=== PATIENT | female | born 1945 | race American Indian/Alaskan Native ===

== ENCOUNTER 2019-03-11 10:50 | Emergency (ER) | payer MEDICARE ==
[2019-03-11 11:08] VITALS: BP 192/90
--- NOTE | 2019-03-11 11:09 | Emergency Department Report ---
Blank Doc - Documentation Documentation: 74-year-old female that presents with abdominal pain and nausea. This initial assessment/diagnostic orders/clinical plan/treatment(s) is/are subject to change based on patient's health status, clinical progression and re- assessment by fellow clinical providers in the ED. Further treatment and workup at subsequent clinical providers discretion. Patient/guardians urged not to elope from the ED as their condition may be serious if not clinically assessed and managed. Initial orders include: 1- Patient sent to [facility] for further evaluation and treatment 2- labs 3- UA
[2019-03-11] MEDS ORDERED: FAMOTIDINE 20 MG/2 ML INJ IV ONE (14:10)
[2019-03-11] MEDS ORDERED: ONDANSETRON 4 MG/2 ML INJ IV ONE (14:10)
[2019-03-11] MEDS ORDERED: KETOROLAC 30 MG/1 ML INJ IV ONE (14:10)
[2019-03-11 14:21] LABS: Hematocrit 42.4 % (30.3-42.9); Mean Corpuscular HGB Conc 33 % (30-34); Mean Corpuscular Volume 84 fl (79-97); Platelet Count 225 K/mm3 (140-440); Red Blood Count 5.08 M/mm3 (3.65-5.03); Red Cell Distribution Width 12.8 % (13.2-15.2)
[2019-03-11 15:02] LABS: Albumin 4.4 g/dL (3.9-5); Calcium 9.6 mg/dL (8.4-10.2)
[2019-03-11 15:05] LABS: Bilirubin,Urine NEG (Negative); Blood,Urine NEG (Negative); Color,Urine Yellow (Yellow); Mucus,Urine FEW /HPF; Protein,Urine <15 mg/dL mg/dL (Negative); Urobilinogen,Urine < 2.0 mg/dL (<2.0)
[2019-03-11 15:59] LABS: Basophils % (Manual) 0 % (0.0-1.8); Total Cells Counted 100
[2019-03-11 16:04] LABS: Platelet Estimate Consistent w Auto; RBC Morphology Normal
--- NOTE | 2019-03-11 17:17 | Cat Scan Report ---
CT ABDOMEN AND PELVIS WITH CONTRAST INDICATION / CLINICAL INFORMATION: Abdominal pain. TECHNIQUE: Axial CT images were obtained through the abdomen and pelvis after 100 mL Omnipaque [address] scans at this location are performed using CT dose reduction for ALARA by means of automated exposure control. COMPARISON: None available. FINDINGS: LOWER CHEST: No significant abnormality. LIVER: No significant abnormality. BILIARY SYSTEM: No significant abnormality. PANCREAS: No significant abnormality. SPLEEN: No significant abnormality. ADRENALS: No significant abnormality. KIDNEYS and URETERS: No significant abnormality. 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 In the upper abdomen a t midline, there is abnormal swirling of mesenteric vessels, and much of the proximal small bowel nor guillermo located in the left upper quadrant is in the right lower quadrant. This includes the distal duo denum and proximal jejunum. Fourth portion of the duodenum does not cross midline. Tethered appearanc e of the mesentery is noted, and segment of the transverse colon is drawn posteriorly, this is in the region of a stapled anastomosis that may represent the jejunojejunostomy. See, for instance series 2 image 83. Swirling of vessels is evident on the axial scan on images 63-88, along with abnormal path of the duodenum and the proximal jejunum from midline back to the right. PERITONEUM: No free fluid. No free air. No fluid collection. LYMPH NODES: No adenopathy. VASCULAR STRUCTURES: No significant abnormality. URINARY BLADDER: No significant abnormality. REPRODUCTIVE ORGANS: Uterus is absent. No significant adnexal abnormality. ADDITIONAL FINDINGS: None. SKELETAL SYSTEM: No acute abnormality. There is a probable hemangioma in the L2 vertebral body just t o the right of midline. There are bilateral pars defects at L4 and a right-sided pars defect at L3. M oderately advanced degenerative disc disease in the lumbar spine, most significant at L5-S1. IMPRESSION: 1. Abnormal path of the proximal small bowel and swirling of central abdominal mesentery is suggesti ve of internal hernia in the setting of previous Neda-en-Y gastric bypass. No evidence of bowel obstr uction is present. 2. No other acute abnormality. Signer Name: Ck Shabazz MD Signed: 03/11/2019 5:13 PM Workstation Name: [id number]
--- NOTE | 2019-03-11 17:37 | Emergency Department Report ---
ED Abdominal Pain HPI - General Chief Complaint: Abdominal Pain Stated Complaint: ABD/BACK PAIN Time Seen by Provider: 03/11/19 11:08 Source: patient Mode of arrival: Ambulatory Limitations: No Limitations - History of Present Illness Initial Comments: Patient is a 74-year-old asthmatic female has a past history of hypertension and a gastric bypass in 2005 presenting with nausea and some mid abdominal discomfort. Patient states that she feels as though there is a gassy movement within her abdomen. States diocese of crampy pain. States that the pain is, mid abdomen. She's had some nausea but denies vomiting. Patient states that she's had one episode of some slightly loose stool before the most part her bowel habits have been relatively normal for her. She denies fevers chills cough cold congestion at this time. Severity scale (0 -10): 1 - Related Data Home Medications Medication Instructions Recorded Confirmed Last Taken Lisinopril/Hydrochlorothiazide 1 tab PO DAILY 05/15/14 05/15/14 Unknown Previous Rx's Medication Instructions Recorded Last Taken Type Ciprofloxacin HCl [Ciprofloxacin 500 mg PO Q12HR #14 tab 03/11/19 Unknown Rx TAB] Dicyclomine [Bentyl] 20 mg PO QID #10 tablet 03/11/19 Unknown Rx Famotidine [Pepcid] 40 mg PO QHS #10 tablet 03/11/19 Unknown Rx Fluconazole [Diflucan TAB] 150 mg PO ONCE #1 tablet 03/11/19 Unknown Rx Metoclopramide [Reglan] 10 mg PO TID PRN #12 tab 03/11/19 Unknown Rx Allergies Allergy/AdvReac Type Severity Reaction Status Date / Time codeine AdvReac Unknown Verified 03/11/19 11:10 ED Review of Systems ROS: Stated complaint: ABD/BACK PAIN Other details as noted in HPI Comment: All other systems reviewed and negative ED Past Medical Hx - Past Medical History Previous Medical History?: Yes Hx Hypertension: Yes - Surgical History Past Surgical History?: Yes Additional Surgical History: Gastric bypass 2005 - Social History Smoking Status: Never Smoker Substance Use Type: None - Medications Home Medications: Home Medications Medication Instructions Recorded Confirmed Last Taken Type Lisinopril/Hydrochlorothiazide 1 tab PO DAILY 05/15/14 05/15/14 Unknown History Ciprofloxacin HCl [Ciprofloxacin 500 mg PO Q12HR #14 tab 03/11/19 Unknown Rx TAB] Dicyclomine [Bentyl] 20 mg PO QID #10 tablet 03/11/19 Unknown Rx Famotidine [Pepcid] 40 mg PO QHS #10 tablet 03/11/19 Unknown Rx Fluconazole [Diflucan TAB] 150 mg PO ONCE #1 tablet 03/11/19 Unknown Rx Metoclopramide [Reglan] 10 mg PO TID PRN #12 tab 03/11/19 Unknown Rx ED Physical Exam - General Limitations: No Limitations General appearance: alert, in no apparent distress - Head Head exam: Present: atraumatic, normocephalic - Eye Eye exam: Present: normal appearance, PERRL, EOMI - ENT ENT exam: Present: mucous membranes moist - Neck Neck exam: Present: normal inspection - Respiratory Respiratory exam: Present: normal lung sounds bilaterally. Absent: respiratory distress, wheezes, rales, rhonchi - Cardiovascular Cardiovascular Exam: Present: regular rate, normal rhythm, normal heart sounds. Absent: systolic murmur, diastolic murmur, rubs, gallop - GI/Abdominal GI/Abdominal exam: Present: soft, tenderness (periumbilical tenderness on palpation), normal bowel sounds. Absent: distended, guarding, rebound, pulsatile mass - Extremities Exam Extremities exam: Present: normal inspection - Back Exam Back exam: Present: normal inspection - Neurological Exam Neurological exam: Present: alert, oriented X3 - Psychiatric Psychiatric exam: Present: normal affect, normal mood - Skin Skin exam: Present: warm, dry, intact, normal color. Absent: rash ED Course Vital Signs 03/11/19 03/11/19 03/11/19 11:06 14:41 15:11 Temperature 98.4 F Pulse Rate 53 L Respiratory 16 16 18 Rate Blood Pressure 192/90 O2 Sat by Pulse 97 Oximetry ED Medical Decision Making - Lab Data Result diagrams: 03/11/19 13:21 03/11/19 13:21 Lab Results 03/11/19 03/11/19 03/11/19 Range/Units 13:21 13:21 Unknown WBC 8.8 (4.5-11.0) K/mm3 RBC 5.08 H (3.65-5.03) M/mm3 Hgb 14.0 (10.1-14.3) gm/dl Hct 42.4 (30.3-42.9) % MCV 84 (79-97) fl MCH 28 (28-32) pg MCHC 33 (30-34) % RDW 12.8 L (13.2-15.2) % Plt Count 225 (140-440) K/mm3 [place] % (Auto) Fre[employer] Rate Specialist Add Manual Diff Complete Total Counted 100 Seg Neutrophils % Freight Rate Specialist Seg Neuts % (Manual) 72.0 H (40.0-70.0) % Band Neutrophils % 0 % Lymphocytes % (Manual) 21.0 (13.4-35.0) % Reactive Lymphs % (Man) 0 % Monocytes % (Manual) 6.0 (0.0-7.3) % Eosinophils % (Manual) 1.0 (0.0-4.3) % Basophils % (Manual) 0 (0.0-1.8) % Metamyelocytes % 0 % Myelocytes % 0 % Promyelocytes % 0 % Blast Cells % 0 % Nucleated RBC % Not Reportable Seg Neutrophils # Man 6.3 (1.8-7.7) K/mm3 Band Neutrophils # 0.0 K/mm3 Lymphocytes # (Manual) 1.8 (1.2-5.4) K/mm3 Abs React Lymphs (Man) 0.0 K/mm3 Monocytes # (Manual) 0.5 (0.0-0.8) K/mm3 Eosinophils # (Manual) 0.1 (0.0-0.4) K/mm3 Basophils # (Manual) 0.0 (0.0-0.1) K/mm3 Metamyelocytes # 0.0 K/mm3 Myelocytes # 0.0 K/mm3 Promyelocytes # 0.0 K/mm3 Blast Cells # 0.0 K/mm3 WBC Morphology Not Reportable Hypersegmented Neuts Not Reportable Hyposegmented Neuts Not Reportable Hypogranular Neuts Not Reportable Smudge Cells Not Reportable Toxic Granulation Not Reportable Toxic Vacuolation Not Reportable Dohle Bodies Not Reportable Pelger-Huet Anomaly Not Reportable Criselda Rods Not Reportable Platelet Estimate Consistent w auto Clumped Platelets Not Reportable Plt Clumps, EDTA Not Reportable Large Platelets Not Reportable Giant Platelets Not Reportable Platelet Satelliting Not Reportable Plt Morphology Comment Not Reportable RBC Morphology Normal Dimorphic RBCs Not Reportable Polychromasia Not Reportable Hypochromasia Not Reportable Poikilocytosis Not Reportable Anisocytosis Not Reportable Microcytosis Not Reportable Macrocytosis Not Reportable Spherocytes Not Reportable Pappenheimer Bodies Not Reportable Sickle Cells Not Reportable Target Cells Not Reportable Tear Drop Cells Not Reportable Ovalocytes Not Reportable Helmet Cells Not Reportable [place] Bodies Not Reportable [place] Rings Not Reportable [place] Cells Not Reportable Bite Cells Not Reportable Crenated Cell Not Reportable Elliptocytes Not Reportable Acanthocytes (Spur) Not Reportable Rouleaux Not Reportable Hemoglobin C Crystals Not Reportable Schistocytes Not Reportable Malaria parasites Not Reportable [place] Bodies Not Reportable Hem Pathologist Commnt No Sodium 143 (137-145) mmol/L Potassium 3.6 (3.6-5.0) mmol/L Chloride 102.1 (98-107) mmol/L Carbon Dioxide 26 (22-30) mmol/L Anion Gap 19 mmol/L BUN 15 (7-17) mg/dL Creatinine 1.1 (0.7-1.2) mg/dL Estimated GFR 59 ml/min BUN/Creatinine Ratio 14 % Glucose 98 (65-100) mg/dL Calcium 9.6 (8.4-10.2) mg/dL Total Bilirubin 0.30 (0.1-1.2) mg/dL AST 22 (5-40) units/L ALT 17 (7-56) units/L Alkaline Phosphatase 92 (35-129) units/L Total Protein 7.6 (6.3-8.2) g/dL Albumin 4.4 (3.9-5) g/dL Albumin/Globulin Ratio 1.4 % Lipase 33 (13-60) units/L Urine Color Yellow (Yellow) Urine Turbidity Slightly-cloudy (Clear) Urine pH 6.0 (5.0-7.0) Ur Specific [place] 1.011 (1.003-1.030) Urine Protein <15 mg/dl (Negative) mg/dL Urine Glucose (UA) Neg (Negative) mg/dL Urine Ketones Neg (Negative) mg/dL Urine Blood Neg (Negative) Urine Nitrite Neg (Negative) Urine Bilirubin Neg (Negative) Urine Urobilinogen < 2.0 (<2.0) mg/dL Ur Leukocyte Esterase Mod (Negative) Urine WBC (Auto) 19.0 H (0.0-6.0) /HPF Urine RBC (Auto) 2.0 (0.0-6.0) /HPF U Epithel Cells (Auto) 2.0 (0-13.0) /HPF Urine Mucus Few /HPF - Radiology Data CT ABDOMEN AND PELVIS WITH CONTRAST INDICATION / CLINICAL INFORMATION: Abdominal pain. TECHNIQUE: Axial CT images were obtained through the abdomen and pelvis after 100 mL Omnipaque [address] scans at this location are performed using CT dose reduction fo r ALARA by means of automated exposure control. COMPARISON: None available. FINDINGS: LOWER CHEST: No significant abnormality. LIVER: No significant abnormality. BILIARY SYSTEM: No significant abnormality. PANCREAS: No significant abnormality. SPLEEN: No significant abnormality. ADRENALS: No significant abnormality. KIDNEYS and URETERS: No significant abnormality. 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 In the upper abdomen at midline, there is abnormal swirling of mesenteric vessels, and much of the proximal small bowel normally located in the left upper quadrant is in the right lower quadrant. This includes the distal duodenum and proximal jejunum. Fourth portion of the duodenum does not cross midline. Tethered appearance of the mesentery is noted, and segment of the transverse colon is drawn posteriorly, this is in the region of a stapled anastomosis that may represent the jejunojejunostomy. See, for instance series 2 image 83. Swirling of vessels is evident on the axial scan on images 63-88, along with abnormal path of the duodenum and the proximal jejunum from midline back to the right. PERITONEUM: No free fluid. No free air. No fluid collection. LYMPH NODES: No adenopathy. VASCULAR STRUCTURES: No significant abnormality. URINARY BLADDER: No significant abnormality. REPRODUCTIVE ORGANS: Uterus is absent. No significant adnexal abnormality. ADDITIONAL FINDINGS: None. SKELETAL SYSTEM: No acute abnormality. There is a probable hemangioma in the L2 vertebral body just to the right of midline. There are bilateral pars defects at L4 and a right- sided pars defect at L3. Moderately advanced degenerative disc disease in the lumbar spine, most significant at L5-S1. IMPRESSION: 1. Abnormal path of the proximal small bowel and swirling of central abdominal mesentery is suggestive of internal hernia in the setting of previous Neda-en-Y gastric bypass. No evidence of bowel obstruction is present. 2. No other acute abnormality. Signer Name: Ck Shabazz MD Signed: 03/11/2019 5:13 PM - Medical Decision Making Patient is 74-year-old [place] female is presenting with some mid abdominal discomfort. CT shows evidence that she has some postsurgical changes from her Neda-en-Y. Patient clinically does not have an obstruction. She has normal bowel sounds and is passing flatus. Changes as described above are likely chronic. Patient does have evidence of urinary tract infection. Patient may be nauseous and not feeling well secondary to the UTI. Patient started on antiemetics as well as Cipro. Patient be discharged home follow-up with primary care physician. Critical care attestation.: If time is entered above; I have spent that time in minutes in the direct care of this critically ill patient, excluding procedure time. ED Disposition Clinical Impression: UTI (urinary tract infection) Disposition: DC-01 TO HOME OR SELFCARE Is pt being admited?: No Does the pt Need Aspirin: No Condition: Stable Instructions: Abdominal Pain (ED), Urinary Tract Infection in Women (ED) Referrals: PRIMARY CARE, [Primary Care Provider] - 3-5 Days Time of Disposition: 17:36
== END 2019-03-11 17:56 | disposition home or self-care (01) ==
LOC: ED 10:50
DX: N39.0 Urinary tract infection, site not specified (principal); I10 Essential (primary) hypertension; Z98.890 Other specified postprocedural states; Z88.8 Allergy status to other drugs, medicaments and biological substances; Z79.899 Other long term (current) drug therapy
CPT/HCPCS: 36415; 74177; 80053; 81001; 83690; 85007; 85025; 87076; 87086; 87186; 96374; 96375; 99284; J1885; J2405; Q9967